=== PATIENT | female | born 2000 | race Caucasian/White ===

== ENCOUNTER 2023-09-14 10:21 | Inpatient (IN) ==
--- NOTE | 2023-09-14 13:08 | History & Physical Report ---
Date of Service September 14, 2023 Assessment & Plan (1) Encounter for induction of labor: Plan Admit, IV labs Pitocin for induction Shabazz catheter balloon placed heart tracing, category 1 Admission and Anticipated Discharge Date Admission Date: September 14, 2023 History of Present Illness Chief Complaint: induction of labor at 40 wks gestational age Primary Care Provider: Radha Walsh MD Patient is a 22 yo F, , 40 wks gestational age, presenting today for IOL. Overall patient is doing well, feels well, and is excited and marginally anxious about the /delivery of her firstborn. VSS and WNL. ROS were unremarkable with the exception of some mild b/l RLQ and LLQ pain (2/3 out of 10) and all PE findings were WNL, except for the mild abd pain reproduced with palpation in the noted areas. Allergies Allergy/AdvReac Type Severity Reaction Status Date / Time No Known Allergies Allergy Verified 09/13/23 14:35 Home Medications Medication Instructions Recorded Confirmed Type prenat.vits,samia,[id number] 1 tab PO DAILY 01/19/23 09/14/23 History Past Med/Surg History Surgical History No pertinent past surgical history Family History (Updated 09/14/23 @ 12:37 by Flor Cuadra RN) Mother Hypertension Denies family history of Ovarian cancer Prostate cancer Myocardial infarction Breast cancer Colorectal cancer Social History (Updated 01/19/23 @ 11:40 by Claudia Tang) Smoking Status: Never smoker Do You Dip or Chew Tobacco: No; Hx Alcohol Use: No Hx Substance Use: No Preferred Language: Pashto Communication Ability: Effective Visual Impairment: No Limitations Hearing Ability: Hard of Hearing Hspt Tutor Required: No Beliefs That Will Affect Care: None marital status: marital status details: Karson (27) [phone] Current Living Situation: Spouse Current Living Situation Comment: lives with spouse, dog, cats (outside cats) current occupational status: unemployed Other Information That Helps Us Care for You: No Feels Safe at Home: Yes Safety Concerns: Feels Safe At This Time Seatbelt Use: always Assistive Devices: Glasses Review of Systems Constitutional: no fever, no chills and no fatigue minor swelling in feet/ankles Eyes: no diplopia, not seeing flashes, no spots in vision and no worsening vision Respiratory: no cough, no chest congestion and no dyspnea Cardiovascular: no chest pain and no palpitations Gastrointestinal: no nausea, no vomiting, no constipation (been taking daily Benefiber) and no diarrhea/loose stools Genitourinary: + urinary frequency (mild, expected with 3rd trimester preg); no dysuria Musculoskeletal: + myalgia (little RLQ and LLQ pain) Neurologic: no tingling and no numbness Psychiatric: mildly anxious, expectant due to imminent delivery of firstborn Physical Exam Constitutional: WD/WN, vitals as above Respiratory: normal respiratory effort, lungs clear to auscultation Cardiovascular: RRR, no murmur, no edema Gastrointestinal (Abdomen): normal bowel sounds, soft, nontender, no hepatosplenomegaly Musculoskeletal: Extremities: extremities normal to inspection (no calf pain or tenderness noted) Psychiatric: A+Ox3, euthymic affect Apperance: appropriately dressed and appropriately groomed Eye Contact: good eye contact Speech: normal rate/rhythm/volume of speech Affect: euthymic affect Results & Data Results & Data Vital Signs (Past 12 Hours) Vital Signs Pulse BP 09/14/23 12:32 68 106/66 Supervising Physician Co-Signing Physician Notes Resident Physician Supervision Note: I was present with Dr. Lazaro during the history and exam. I discussed the case with the resident and agree with the findings and plan as documented in the note. Any exceptions or clarifications are listed here: 22yo at 40+wks for planned induction of labor due to postdates with unfavorable cx. Denies rom, vb or ctx. +FM. PNC c/b 1. GBS pos 2. Rh neg PNL rh neg, ri, gbs pos OBH gi. GYNH: neg paps, no stds PE: as above. LE swelling tr bilaterally. abd soft gravid nt efw 7-8#. SVE closed/50%/-3 mid, med. FHTs categ 1. toco irreg. PROCEDURE: sse cx visualized, grasped on ant lip with ring forcep, shabazz through os and balloon inflated with 40cc sterile water. Spec removed, shabazz taped to leg. pt steffanie well. Pt admitted, start pcn for gbs pos. pitocin induction to begin. fhts categ 1. denies further questions. Documented By: Kimberly Webber MD, FACOG
[2023-09-14] MEDS ORDERED: LIDOCAINE 1% LOCAL 20 ML VIAL INFIL PRN (13:28)
[2023-09-14] MEDS ORDERED: PENICILLIN G POTASSIUM 6 MU in DEXTROSE 5% 250 ML IV STA (13:28)
[2023-09-14] MEDS ORDERED: OXYTOCIN 30 UNITS/500 ML BAG IV PRN ×2 (13:28)
[2023-09-14] MEDS: LACTATED RINGER'S 1,000 ML IV PRN (14:04)
[2023-09-14 14:18] LABS: Hematocrit (blood only) 34.6 % (37.0-47.0); Hemoglobin 11.7 g/dl (12.0-16.0); Mean Corpuscular Hemoglobin 32.3 pg (25.0-34.0); Mean Corpuscular Hgb Conc 33.8 g/dL (32.0-36.0); Mean Corpuscular Volume 95.6 fL (80.0-100.0); Mean Platelet Volume 11.1 fL (9.4-12.4); Platelet Count 142 K/uL (130-400); RDW Coefficient of Variation 13.4 % (11.5-14.5); RDW Standard Deviation 47.1 fL (36.4-46.3); Red Blood Count 3.62 M/uL (4.20-5.40); White Blood Count 10.03 K/ul (4.8-10.8)
[2023-09-14] MEDS: BUTORPHANOL TARTRATE 1 MG/ML VIAL IV PRN ×2 (17:00→18:49)
[2023-09-14] MEDS: PENICILLIN G POTASSIUM 3 MU in DEXTROSE 5% 100 ML IV PRN ×2 (17:58→22:41)
[2023-09-14] MEDS ORDERED: fentaNYL citrate PF 100 MCG/2 ML VIAL ONE (19:37)
[2023-09-14] MEDS ORDERED: ePHEDrine sulfate 50 MG/ML AMP ONE (19:37)
[2023-09-14] MEDS ORDERED: SODIUM CHLORIDE 0.9% PF INJ 10 ML VIAL ONE (19:38)
[2023-09-14] MEDS ORDERED: LIDOCAINE 2%/EPINEPHRINE 1:200,000 20 ML PF ONE (19:38)
[2023-09-14] MEDS ORDERED: BUPIVACAINE 0.25% PF 30 ML VIAL ONE (19:38)
[2023-09-14] MEDS ORDERED: fentaNYL 2MCG/ML ROPIVACAINE 1.25MG/ML 100 ML BAG EPI ONE (19:38)
[2023-09-14] MEDS ORDERED: ePHEDrine sulfate 50 MG/ML AMP IV PRN (20:03)
[2023-09-14] MEDS ORDERED: NALOXONE HCL 1 MG in SODIUM CHLORIDE 0.9% 1,000 ML IV PRN (20:03)
[2023-09-14] MEDS ORDERED: ROPIVACAINE 0.5% PF 5 MG/ML 20 ML VIAL EPI PRN (20:03)
[2023-09-14] MEDS ORDERED: diphenhydrAMINE 50 MG/ML VIAL IV PRN (20:03)
[2023-09-14] MEDS ORDERED: fentaNYL 2MCG/ML ROPIVACAINE 1.25MG/ML 100 ML BAG EPI PRN (20:03)
[2023-09-14] MEDS ORDERED: fentaNYL citrate PF 100 MCG/2 ML VIAL EPI PRN (20:03)
[2023-09-14] MEDS ORDERED: BUPIVACAINE 0.25% PF 30 ML VIAL EPI PRN (20:03)
[2023-09-14] MEDS ORDERED: SODIUM CHLORIDE 0.9% PF INJ 10 ML VIAL EPI PRN (20:03)
[2023-09-14] MEDS ORDERED: BUPIVACAINE 0.25% PF 30 ML VIAL EPI STA (20:03)
[2023-09-14] MEDS ORDERED: NALOXONE HCL 0.4 MG/1 ML VIAL/CARP IV PRN (20:03)
[2023-09-14] MEDS ORDERED: fentaNYL citrate PF 100 MCG/2 ML VIAL EPI STA (20:03)
[2023-09-14] MEDS ORDERED: NALBUPHINE HCL INJ 10 MG/ML AMP IV PRN (20:03)
[2023-09-14] MEDS ORDERED: ONDANSETRON INJ 2 MG/ML 2 ML VIAL IV PRN (20:03)
[2023-09-14] MEDS ORDERED: LIDOCAINE 2% MPF LOCAL 5 ML VIAL EPI PRN (20:03)
[2023-09-14] MEDS ORDERED: SODIUM CHLORIDE 0.9% PF INJ 10 ML VIAL EPI STA (20:03)
[2023-09-14] MEDS ORDERED: LIDOCAINE 2%/EPINEPHRINE 1:200,000 20 ML PF EPI STA (20:03)
--- NOTE | 2023-09-14 20:03 | Anesthesiology Consultation ---
Date of Service September 14, 2023 Assessment & Plan Chart Review Chart Review: Patient NOT seen in Pre Admission Testing and Acceptable Risk for Labor Epidural Consults Requested none ASA ASA2 Proposed Anesthesia Anesthesia Type: Labor Epidural Risk / Benefits Reviewed With: PT / POA / Parent / Guardian, Accepts Plan and Informed Consent Obtained History Height/Weight Height: 5 ft 6 in Weight: 82.554 kg Allergies Allergy/AdvReac Type Severity Reaction Status Date / Time No Known Allergies Allergy Verified 09/13/23 14:35 Medications Home Medications Medication Instructions Recorded Confirmed Last Taken prenat.vits,samia,[id number] 1 tab PO DAILY 01/19/23 09/14/23 09/13/23 09:00 Active Medications Generic Name Dose Route Start Last Admin Trade Name Freq PRN Reason Stop Dose Admin Butorphanol Tartrate 1 mg 09/14/23 16:46 09/14/23 18:49 Butorphanol Tartrate 1 Mg/Ml Vial IV 1 mg Q1HWA PRN Administration Pain Oxytocin 30 units in 500 mls @ 17 mls/hr 09/14/23 13:28 09/14/23 19:00 Pitocin IV 09/16/23 13:27 1.02 units/hr .Q24H PRN 17 mls/hr Labor Induction/Augmentation Titration Protocol 1.02 UNITS/HR Lactated Ringer's 1,000 mls @ 125 mls/hr 09/14/23 13:28 09/14/23 14:04 Lr IV 09/16/23 13:27 125 mls/hr .Q8H PRN Administration L&D Protocol Protocol Penicillin G Potassium 3 mu/ 106 mls @ 100 mls/hr 09/14/23 16:28 09/14/23 19:02 Dextrose IV 09/24/23 16:27 Infused Q4H PRN Infusion GBS(+) Until Delivery Exercise / Class Metabolic Activity II 4-5 Yardwork/Stairs/Walk up hill Past Family History Family History (Updated 09/14/23 @ 12:37 by Flor Cuadra RN) Mother Hypertension Denies family history of Ovarian cancer Prostate cancer Myocardial infarction Breast cancer Colorectal cancer Past Surgical History Surgical History No pertinent past surgical history Past Anesthesia History No Hx of Anesthesia Complications and No Family Hx of Anesthesia Complications History of PONV No Hx of PONV and No Hx of Motion Sickness Social History Smoking Status: Never smoker Do You Dip or Chew Tobacco: No Hx Alcohol Use: No Hx Substance Use: No Physical Exam Vital Signs Last Vital Signs Temp 36.7 C 09/14/23 19:30 Pulse 65 09/14/23 18:11 Resp 18 09/14/23 19:30 BP 116/73 09/14/23 18:11 ENMT Mouth: no dentition abnormality Thyromental Distance: > or= 3.5 Finger Breadths Mallampati Class: II Neck normal visual inspection Respiratory normal respiratory effort Auscultation: lungs clear to auscultation bilaterally Cardiovascular Rate/Rhythm: regular rate and regular rhythm Psychiatric Orientation: alert Testing Laboratory Results 09/14/23 13:57
[2023-09-15] MEDS: LACTATED RINGER'S 1,000 ML IV PRN (00:38)
--- NOTE | 2023-09-15 04:03 | Delivery Summary ---
Vaginal Delivery Summary Date of Service September 15, 2023 Vaginal Delivery Summary and 2nd Degree LAC Spontaneous vaginal delivery the patient was induced for postdates given cervical Lynch and Pitocin she requested epidural she progressed to fully dilated and soft to spontaneously rupture of membranes she then pushed over several contractions delivering a baby in occiput anterior position fluid was clear after delivery of the head there was a loose nuchal cord passed over the h ead gentle traction the baby no excessive force live vigorous male cord clamped and cut cord get blood obtained placenta removed with gentle traction IV Pitocin was started second-degree tear repaired with 3-0 Vicryl sponge and instrument counts correct estimated blood loss 300 mL [facility] Vaginal Delivery Charge Delivery Type Details: and 2nd Degree LAC
[2023-09-15] MEDS ORDERED: bisacodyL 10 MG SUPP PR PRN (04:16)
[2023-09-15] MEDS ORDERED: BENZOCAINE 20% SPRY 85 APPLN/85 GM CAN EXT PRN (04:16)
[2023-09-15] MEDS ORDERED: HYDROCORTISONE ACETATE 25 MG SUPP PR PRN (04:16)
[2023-09-15] MEDS ORDERED: OXYTOCIN 30 UNITS/500 ML BAG IV PRN (04:16)
[2023-09-15] MEDS ORDERED: DIPHTHERIA/TETANUS/PERTUSSIS Vaccine (Tdap, Age 7+yrs) 0.5mL SYR/VL IM ONE (04:16)
[2023-09-15] MEDS: IBUPROFEN 600 MG TAB PO PRN ×4 (05:28→20:59)
[2023-09-15] MEDS: PRENATAL VITAMIN 1 TAB PO SCH (07:12)
[2023-09-15] MEDS: ACETAMINOPHEN 325 MG TAB PO PRN ×2 (07:12→14:28)
[2023-09-15] MEDS: DOCUSATE SODIUM 100 MG CAP PO SCH ×2 (07:12→20:59)
--- NOTE | 2023-09-15 07:50 | Anesthesia Procedure Note ---
Date of Service September 15, 2023 Anesthesia Post Epidural Note Vital Signs Vital Signs: Temp Pulse Resp BP Pulse Ox O2 Del Method 36.7 C 89 18 104/61 97 Room Air 09/15/23 06:20 09/15/23 06:20 09/15/23 06:20 09/15/23 06:20 09/15/23 06:20 09/15/23 06:20 Notes Mental Status: alert / awake / arousable and participated in evaluation Nausea / Vomiting: adequately controlled Pain: adequately controlled Airway Patency, RR, SpO2: stable & adequate BP & HR: stable & adequate Hydration State: stable & adequate Neuraxial Anesthesia: was administered and sensory block is resolving Anesthetic Complications: no major complications apparent Epidural: Removed without complications and With tip intact
[2023-09-16 06:35] LABS: Hematocrit (blood only) 26.7 % (37.0-47.0); Hemoglobin 8.9 g/dl (12.0-16.0); Mean Corpuscular Hemoglobin 32.8 pg (25.0-34.0); Mean Corpuscular Hgb Conc 33.3 g/dL (32.0-36.0); Mean Corpuscular Volume 98.5 fL (80.0-100.0); Mean Platelet Volume 11.4 fL (9.4-12.4); Platelet Count 149 K/uL (130-400); RDW Coefficient of Variation 13.7 % (11.5-14.5); RDW Standard Deviation 49.4 fL (36.4-46.3); Red Blood Count 2.71 M/uL (4.20-5.40); White Blood Count 12.75 K/ul (4.8-10.8)
[2023-09-16] MEDS: IBUPROFEN 600 MG TAB PO PRN (07:38)
[2023-09-16] MEDS: PRENATAL VITAMIN 1 TAB PO SCH (07:38)
[2023-09-16] MEDS: DOCUSATE SODIUM 100 MG CAP PO SCH (07:38)
--- NOTE | 2023-09-16 07:46 | Obstetrical Progress Note ---
Date of Service September 16, 2023 Assessment & Plan (1) care and examination: Plan stable doing well, ready for dc home, instructions reviewed. importance of vitamin reviewed at least for 6wks or duration of nursing. may need calcium supplement as well. f/u 6 wk pp. needs rhogam, RI, breast feeding. Day #:: 2 Subjective Ambulation: ambulating normally Voiding: no voiding problems Diet Tolerance:: regular diet Lochia:: Small Feeding Type:: breast feeding no complaints. ready to go home. needs rhogam prior to dc Physical Exam Constitutional WD/WN, vitals as above Respiratory normal respiratory effort, lungs clear to auscultation Cardiovascular Rate/Rhythm: regular rate and regular rhythm Gastrointestinal (Abdomen) Inspection/Auscultation: abdomen normal to inspection Percussion/Palpation: abdomen soft Fundus firm 1cm down Musculoskeletal nt calves tr edema Neurologic grossly normal Psychiatric A+Ox3, euthymic affect Results & Data Vital Signs (Past 12 Hours) Vital Signs Temp Pulse Resp BP 09/15/23 23:30 97.9 F 76 16 99/63 L
[2023-09-16] MEDS ORDERED: bisacodyL 5 MG TABEC PO SCH (20:00)
== END 2023-09-16 10:15 | disposition home or self-care (01) | DRG 807 ==
LOC: 4S1 12:24 → 4E2 09-15 06:30